=== PATIENT | male | born 1975 | race Caucasian/White ===

== ENCOUNTER 2025-04-09 06:24 | Day surgery (SDC) | payer OTHER ==
[2025-04-09] MEDS ORDERED: Lactated Ringers 1,000 ML IV ONE (06:25)
[2025-04-09] MEDS ORDERED: Propofol 200 MG/20 ML SDV IV ONE (06:25)
[2025-04-09] MEDS: Lactated Ringers 1,000 ML IV SCH (07:06)
[2025-04-09] MEDS ORDERED: Propofol 200 MG/20 ML SDV ONE (07:29)
== END 2025-04-09 09:04 | disposition home or self-care (01) ==
LOC: DL.ENDO 06:24
PROVIDERS: ATTEND Internal Medicine Gastroenterology
DX: D12.8 Benign neoplasm of rectum (principal); K62.5 Hemorrhage of anus and rectum; K64.4 Residual hemorrhoidal skin tags; K64.8 Other hemorrhoids; I10 Essential (primary) hypertension; E03.9 Hypothyroidism, unspecified; E66.09 Other obesity due to excess calories; D47.2 Monoclonal gammopathy; Z68.41 Body mass index [BMI] 40.0-44.9, adult; Z91.09 Other allergy status, other than to drugs and biological substances; Z86.0100 Personal history of colon polyps, unspecified
CPT/HCPCS: 45385; J7120; J2704; S5010